=== PATIENT | female | born 1960 | race Caucasian/White ===

== ENCOUNTER 2020-10-16 01:25 | Inpatient (IN) ==
[2020-10-16] MEDS ORDERED: Aspirin 81 MG TAB.CHEW PO ONE (01:40)
[2020-10-16] MEDS ORDERED: *HR* Heparin 5,000 UNIT/ML VIAL ONE (01:41)
[2020-10-16] MEDS ORDERED: Aspirin 81 MG TAB.CHEW ONE (01:41)
[2020-10-16] MEDS ORDERED: 0.9 % Sodium Chloride 1,000 ML ONE (01:41)
[2020-10-16] MEDS ORDERED: *HR* FentaNYL (PF) 100 MCG/2 ML VIAL IVP ONE (01:44)
[2020-10-16] MEDS ORDERED: 0.9 % Sodium Chloride 1,000 ML IVC ONE (01:45)
[2020-10-16] MEDS ORDERED: *HR* FentaNYL (PF) 100 MCG/2 ML VIAL ONE ×3 (01:46→02:15)
[2020-10-16] MEDS ORDERED: 0.9 % Sodium Chloride 2,000 ML ONE (02:00)
[2020-10-16] MEDS ORDERED: Heparin 1,000 UNITS/500 mL 500 ML ONE ×2 (02:00→02:42)
[2020-10-16] MEDS ORDERED: *HR* Heparin 10,000 UNIT/10 ML VIAL ONE (02:00)
[2020-10-16] MEDS ORDERED: ISOVUE-370 200 ML INFUS..BTL ONE (02:00)
[2020-10-16] MEDS ORDERED: Nitroglycerin 1,000 MCG/5 ML VIAL IV ONE (02:00)
[2020-10-16] MEDS ORDERED: *HR* Ticagrelor 90 MG TABLET ONE (02:01)
[2020-10-16 02:03] LABS: Basophils % 0.3 %; Eosinophils # 0.1 K/mcL (0.0-0.6); Eosinophils % 0.5 %; Hematocrit 39.6 % (35.3-44.9); Immature Granulocytes % 0.3 % (0-4); Lymphocytes # 1.6 K/mcL (0.6-4.6); Mean Corpuscular HGB Conc 32.8 g/dL (31.6-35.5); Mean Corpuscular Volume 91.5 fL (83.0-100.0); Mean Platelet Volume 9.8 fL (9.4-12.4); Monocytes # 0.6 K/mcL (0.0-1.3); Monocytes % 5.3 %; Neutrophils # 8.1 K/mcL (1.6-8.9); Platelet Count 276 K/mcL (140-400); Red Blood Count 4.33 M/mcL (3.82-4.97); Red Cell Distribution Width 12.9 % (11.5-14.5); Segmented Neutrophils % 78.6 %; White Blood Count 10.3 K/mcL (4.3-11.1)
[2020-10-16] MEDS ORDERED: *HR* Midazolam HCl 2 MG/2 ML VIAL ONE (02:14)
[2020-10-16 02:15] LABS: INR 1.1; Prothrombin Time 12.4 Seconds (9.4-12.1)
[2020-10-16 02:17] LABS: Activated Partial Thrombo Time 31.4 Seconds (26.0-36.0)
[2020-10-16 02:25] LABS: BUN/Creatinine Ratio 15 (6-26); Blood Urea Nitrogen 11 mg/dL (8-23); Carbon Dioxide 24 mEq/L (23-29); Chloride 101 mEq/L (98-107); Glucose 107 mg/dL (70-105); Magnesium 1.9 mg/dL (1.6-2.6); Osmolality,Calculated 284 (280-300); Potassium 3.2 mEq/L (3.5-5.1); Sodium 137 mEq/L (136-145); eGFR For African Americans > 60 (> 60); eGFR For Non-African Americans > 60 (> 60)
[2020-10-16] MEDS ORDERED: Ondansetron 4 MG/2 ML VIAL ONE (02:32)
[2020-10-16 02:33] LABS: Troponin I < 0.03 ng/mL (< 0.04)
[2020-10-16] MEDS ORDERED: *HR* Atropine Sulfate 1 MG/10 ML SYRINGE ONE (02:35)
[2020-10-16] MEDS ORDERED: *HR* Phenylephrine 10 MG/ML VIAL ONE (02:50)
[2020-10-16 03:08] LABS: Calcium 9.8 mg/dL (8.6-10.3)
[2020-10-16] MEDS ORDERED: Perflutren Lipid Microsphere 1.3 ML in 0.9 % Sodium Chloride 8.7 ML IVP PRN (03:16)
[2020-10-16] MEDS ORDERED: Naloxone 0.4 MG/ML INJ IVP PRN (03:16)
[2020-10-16 04:41] LABS: Basophils % 0.4 %; Eosinophils % 0.1 %; Hematocrit 35.9 % (35.3-44.9); Hemoglobin 12.1 g/dL (11.5-15.4); Immature Granulocytes % 0.4 % (0-4); Lymphocytes # 0.9 K/mcL (0.6-4.6); Lymphocytes % 9.6 %; Mean Corpuscular HGB Conc 33.7 g/dL (31.6-35.5); Mean Corpuscular Hemoglobin 30.6 pg (28.0-33.3); Mean Corpuscular Volume 90.7 fL (83.0-100.0); Mean Platelet Volume 9.8 fL (9.4-12.4); Monocytes # 0.4 K/mcL (0.0-1.3); Monocytes % 3.9 %; Platelet Count 246 K/mcL (140-400); Red Blood Count 3.96 M/mcL (3.82-4.97); Red Cell Distribution Width 12.9 % (11.5-14.5); Segmented Neutrophils % 85.6 %; White Blood Count 9.3 K/mcL (4.3-11.1)
[2020-10-16 04:48] LABS: Estimated Average Glucose 126 mg/dl
[2020-10-16] MEDS ORDERED: *HR* Ticagrelor 90 MG TABLET PO ONE (04:52)
[2020-10-16 04:57] LABS: BUN/Creatinine Ratio 19 (6-26); Blood Urea Nitrogen 11 mg/dL (8-23); Carbon Dioxide 26 mEq/L (23-29); Chloride 102 mEq/L (98-107); Cholesterol 137 mg/dL (< 200); Glucose 122 mg/dL (70-105); HDL Cholesterol 34 mg/dL (40-59); LDL Cholesterol,Calculated 86 mg/dL (< 100); Osmolality,Calculated 285 (280-300); Potassium 3.5 mEq/L (3.5-5.1); Sodium 137 mEq/L (136-145); Triglycerides 85 mg/dL (< 150); eGFR For African Americans > 60 (> 60); eGFR For Non-African Americans > 60 (> 60)
[2020-10-16 05:07] LABS: Troponin I 2.34 ng/mL (< 0.04)
[2020-10-16] MEDS: *HR* Ticagrelor 90 MG TABLET PO SCH ×2 (07:31→20:01)
[2020-10-16] MEDS: Aspirin 81 MG TAB.CHEW PO SCH (07:31)
[2020-10-16] MEDS: *HR* Heparin 5,000 UNIT/ML VIAL SQ SCH (16:56)
[2020-10-16] MEDS: hydrOXYzine pamoate 25 MG CAPSULE PO PRN (16:57)
[2020-10-16] MEDS: polyethylene glycoL 3350 17 GM POWD.PACK PO SCH (20:00)
[2020-10-16] MEDS ORDERED: traZODone 50 MG TABLET PO SCH (21:00)
[2020-10-17] MEDS: *HR* Heparin 5,000 UNIT/ML VIAL SQ SCH (05:19)
[2020-10-17] MEDS: polyethylene glycoL 3350 17 GM POWD.PACK PO SCH ×2 (07:51→19:54)
[2020-10-17] MEDS: hydrOXYzine pamoate 25 MG CAPSULE PO PRN (07:52)
[2020-10-17] MEDS: *HR* Ticagrelor 90 MG TABLET PO SCH ×2 (07:53→19:53)
[2020-10-17] MEDS: Aspirin 81 MG TAB.CHEW PO SCH (07:53)
[2020-10-17] MEDS ORDERED: Nitroglycerin 0.4 MG TAB.SUBL SL PRN ×2 (08:08→09:33)
[2020-10-17] MEDS ORDERED: Loratadine 10 MG TABLET PO SCH (09:00)
[2020-10-17] MEDS ORDERED: Anastrozole 1 MG TABLET PO SCH (09:00)
[2020-10-17] MEDS ORDERED: Cholecalciferol (D-3) 1,000 UNIT (25MCG) TABLET PO SCH (09:00)
[2020-10-17] MEDS ORDERED: BuPROPion XL (24 HR) 150 MG TABLET PO SCH (09:00)
[2020-10-17] MEDS ORDERED: Naloxone 0.4 MG/ML INJ IVP PRN (09:33)
[2020-10-17] MEDS ORDERED: hydrOXYzine pamoate 25 MG CAPSULE PO PRN (09:33)
[2020-10-17] MEDS ORDERED: traZODone 50 MG TABLET PO SCH (21:00)
[2020-10-18 00:38] VITALS: TEMP 98.1
[2020-10-18] MEDS: *HR* Ticagrelor 90 MG TABLET PO SCH (08:41)
[2020-10-18] MEDS: polyethylene glycoL 3350 17 GM POWD.PACK PO SCH (08:42)
[2020-10-18 08:46] VITALS: BP 90/65; PULSE 61; O2SAT 96
[2020-10-18] MEDS ORDERED: Aspirin 81 MG TAB.CHEW PO SCH (09:00)
[2020-10-18] MEDS ORDERED: Cholecalciferol (D-3) 1,000 UNIT (25MCG) TABLET PO SCH (09:00)
[2020-10-18] MEDS ORDERED: BuPROPion XL (24 HR) 150 MG TABLET PO SCH (09:00)
[2020-10-18] MEDS ORDERED: Loratadine 10 MG TABLET PO SCH (09:00)
[2020-10-18] MEDS ORDERED: Anastrozole 1 MG TABLET PO SCH (09:00)
== END 2020-10-18 11:05 | disposition home or self-care (01) | DRG 174 ==
LOC: EMEROOARM 01:25 → ICNU 02:30 → 2NENU 10-17 22:47
PROVIDERS: ADMIT Internal Medicine; ATTEND Internal Medicine

== ENCOUNTER 2020-10-26 17:30 | Observation (INO) ==
[2020-10-26] MEDS ORDERED: 0.9 % Sodium Chloride 500 ML IVC ONE (18:08)
[2020-10-26 18:15] LABS: Basophils # 0.1 K/mcL (0.0-0.2); Basophils % 0.9 %; Eosinophils # 0.1 K/mcL (0.0-0.6); Eosinophils % 2.4 %; Hematocrit 40.8 % (35.3-44.9); Hemoglobin 13.4 g/dL (11.5-15.4); Immature Granulocytes % 0.2 % (0-4); Lymphocytes # 1.7 K/mcL (0.6-4.6); Lymphocytes % 31.9 %; Mean Corpuscular HGB Conc 32.8 g/dL (31.6-35.5); Mean Corpuscular Hemoglobin 30.2 pg (28.0-33.3); Mean Corpuscular Volume 91.9 fL (83.0-100.0); Mean Platelet Volume 9.8 fL (9.4-12.4); Monocytes # 0.4 K/mcL (0.0-1.3); Neutrophils # 3.1 K/mcL (1.6-8.9); Platelet Count 350 K/mcL (140-400); Red Blood Count 4.44 M/mcL (3.82-4.97); Segmented Neutrophils % 57.6 %; White Blood Count 5.4 K/mcL (4.3-11.1)
[2020-10-26 18:27] LABS: BUN/Creatinine Ratio 14 (6-26); Blood Urea Nitrogen 15 mg/dL (8-23); Calcium 9.9 mg/dL (8.6-10.3); Carbon Dioxide 27 mEq/L (23-29); Chloride 106 mEq/L (98-107); Glucose 99 mg/dL (70-105); Osmolality,Calculated 291 (280-300); Sodium 140 mEq/L (136-145); eGFR For African Americans > 60 (> 60); eGFR For Non-African Americans 53 (> 60)
[2020-10-26 18:28] LABS: Troponin I < 0.03 ng/mL (< 0.04)
[2020-10-26 18:29] LABS: Prothrombin Time 11.9 Seconds (9.4-12.1)
[2020-10-26 18:31] LABS: Activated Partial Thrombo Time 34.6 Seconds (26.0-36.0)
[2020-10-26 18:47] LABS: Platelet Estimate Normal (Normal); Reactive Lymphocytes Present (Not Present)
[2020-10-26] MEDS ORDERED: Ondansetron 4 MG/2 ML VIAL IVP PRN (20:24)
[2020-10-26] MEDS ORDERED: Acetaminophen 325 MG TABLET PO PRN (20:24)
[2020-10-26] MEDS ORDERED: Naloxone 0.4 MG/ML INJ IVP PRN (20:24)
[2020-10-26] MEDS ORDERED: Nitroglycerin 0.4 MG TAB.SUBL SL PRN (20:29)
[2020-10-26] MEDS ORDERED: Morphine Sulfate 2 MG/ML SYRINGE IVP PRN (20:30)
[2020-10-26] MEDS ORDERED: polyethylene glycoL 3350 17 GM POWD.PACK PO PRN (20:35)
[2020-10-26] MEDS ORDERED: traZODone 50 MG TABLET PO SCH (21:00)
[2020-10-26] MEDS: Aspirin Enteric Coated 81 MG Tablet PO SCH (23:24)
[2020-10-26] MEDS: *HR* Ticagrelor 90 MG TABLET PO SCH (23:25)
[2020-10-27 00:51] LABS: INR 1.1; Prothrombin Time 12.2 Seconds (9.4-12.1)
[2020-10-27 00:54] LABS: Activated Partial Thrombo Time 30.9 Seconds (26.0-36.0)
[2020-10-27 01:03] LABS: Alanine Aminotransferase 15 Units/L (7-52); Albumin 3.7 g/dL (3.5-5.7); Albumin/Globulin Ratio 1.4 (1.1-2.2); Alkaline Phosphatase 84 Units/L (34-104); Aspartate Amino Transferase 12 Units/L (13-39); BUN/Creatinine Ratio 17 (6-26); Bilirubin,Total 0.2 mg/dL (0.3-1.0); Blood Urea Nitrogen 14 mg/dL (8-23); Calcium 9.5 mg/dL (8.6-10.3); Carbon Dioxide 25 mEq/L (23-29); Chloride 107 mEq/L (98-107); Chol/HDL Ratio 3.5 (0-4.9); Cholesterol 111 mg/dL (< 200); Globulin 2.7 g/dL (2.4-3.5); Glucose 130 mg/dL (70-105); HDL Cholesterol 32 mg/dL (40-59); LDL Cholesterol,Calculated 40 mg/dL (< 100); Magnesium 1.9 mg/dL (1.6-2.6); Osmolality,Calculated 290 (280-300); Potassium 3.4 mEq/L (3.5-5.1); Sodium 139 mEq/L (136-145); Total Protein 6.4 g/dL (6.4-8.9); Triglycerides 193 mg/dL (< 150); eGFR For African Americans > 60 (> 60); eGFR For Non-African Americans > 60 (> 60)
[2020-10-27 01:05] LABS: Troponin I < 0.03 ng/mL (< 0.04)
[2020-10-27 01:19] LABS: Thyroid Stimulating Hormone 3.173 mcIU/mL (0.340-5.600)
[2020-10-27] MEDS: Regadenoson 0.4 MG/5 ML SYRINGE IVP ONE ×2 (08:15→08:42)
[2020-10-27] MEDS ORDERED: BuPROPion XL (24 HR) 150 MG TABLET PO SCH (09:00)
[2020-10-27] MEDS ORDERED: Anastrozole 1 MG TABLET PO SCH (09:00)
[2020-10-27] MEDS ORDERED: Cholecalciferol (D-3) 1,000 UNIT (25MCG) TABLET PO SCH (09:00)
[2020-10-27] MEDS: Aspirin Enteric Coated 81 MG Tablet PO SCH (09:06)
[2020-10-27] MEDS: *HR* Ticagrelor 90 MG TABLET PO SCH (09:06)
[2020-10-27 10:22] VITALS: TEMP 97.4; O2SAT 95
[2020-10-27 14:23] VITALS: BP 103/65; PULSE 63
== END 2020-10-27 17:57 | disposition home or self-care (01) ==
LOC: 2ANU 17:30 → EMEROOARM 17:30 → SUATTDRO 19:53 → 3ANU 21:25
PROVIDERS: ADMIT Internal Medicine; ATTEND Hospitalist